=== PATIENT | female | born 1960 | race Caucasian/White ===

== ENCOUNTER 2020-07-18 21:27 | Emergency (ER) | payer OTHER ==
[2020-07-18] MEDS ORDERED: MORPHINE 4 MG/ML SYR ONE (22:50)
--- NOTE | 2020-07-18 23:32 | EDPHYS ---
Physician Documentation [facility] Name: Taylor Siegel Age: 59 yrs Sex: Female : 1960 Arrival Date: 07/18/2020 Time: 21:31 Bed 2 Private MD: ED Physician Zach Hopkins HPI: 07/18 22:36 This 59 yrs old Female presents to ER via Ambulatory with complaints of mh7 Shoulder Pain. 22:36 The patient or guardian complains of an injury, pain, that is acute. right shoulder. mh7 Context: The problem was sustained at home, resulted from lifting or carrying, a heavy object, moving a table, The patient experiences decreased range of motion, when rotates arm, The patient reports no obvious deformity. Onset: The symptoms/episode began/occurred yesterday. Modifying factors: the symptoms are alleviated by nothing. The symptoms are aggravated by lifting weight, movement, rotation of arm. Associated signs and symptoms: Pertinent negatives: abdominal pain, chest pain, diaphoresis, dyspnea, neck pain, shortness of breath, tingling. Severity of symptoms: At their worst the symptoms were moderate, last night, in the emergency department the symptoms are unchanged. Treatment prior to arrival includes: no previous treatment. Historical: - Allergies: 21:43 Sulfa (Sulfonamide Antibiotics); lp1 - PMHx: 21:43 Hypertension; Hyperlipidemia; lp1 - PSHx: 21:43 Hysterectomy; lp1 - Immunization history:: Adult Immunizations up to date. - Social history:: Smoking status: Patient denies any tobacco usage or history of. ROS: 22:36 Constitutional: Negative for fever, chills, and weight loss, Eyes: Negative for injury, mh7 pain, redness, and discharge, ENT: Negative for injury, pain, and discharge, Neck: Negative for injury, pain, and swelling, Cardiovascular: Negative for chest pain, palpitations, and edema, Respiratory: Negative for shortness of breath, cough, wheezing, and pleuritic chest pain, Abdomen/GI: Negative for abdominal pain, nausea, vomiting, diarrhea, and constipation, Back: Negative for injury and pain, : Negative for injury, bleeding, discharge, and swelling, Skin: Negative for injury, rash, and discoloration, Neuro: Negative for headache, weakness, numbness, tingling, and seizure, Psych: Negative for depression, anxiety, suicide ideation, homicidal ideation, and hallucinations, Allergy/Immunology: Negative for hives, rash, and allergies, Endocrine: Negative for neck swelling, polydipsia, polyuria, polyphagia, and marked weight changes, Hematologic/Lymphatic: Negative for swollen nodes, abnormal bleeding, and unusual bruising. Exam: 22:36 Constitutional: This is a well developed, well nourished patient who is awake, alert, mh7 and in no acute distress. Head/Face: Normocephalic, atraumatic. Eyes: Pupils equal round and reactive to light, extra-ocular motions intact. Lids and lashes normal. Conjunctiva and sclera are non-icteric and not injected. Cornea within normal limits. Periorbital areas with no swelling, redness, or edema. Neck: Trachea midline, no thyromegaly or masses palpated, and no cervical lymphadenopathy. Supple, full range of motion without nuchal rigidity, or vertebral point tenderness. No Meningismus. Chest/axilla: Normal chest wall appearance and motion. Nontender with no deformity. No lesions are appreciated. Cardiovascular: Regular rate and rhythm with a normal S1 and S2. No gallops, murmurs, or rubs. Normal PMI, no JVD. No pulse deficits. Respiratory: Lungs have equal breath sounds bilaterally, clear to auscultation and percussion. No rales, rhonchi or wheezes noted. No increased work of breathing, no retractions or nasal flaring. Abdomen/GI: Soft, non-tender, with normal bowel sounds. No distension or tympany. No guarding or rebound. No evidence of tenderness throughout. Back: No spinal tenderness. No costovertebral tenderness. Full range of motion. Skin: Warm, dry with normal turgor. Normal color with no rashes, no lesions, and no evidence of cellulitis. 22:36 Neuro: Awake and alert, GCS 15, oriented to person, place, time, and situation. Cranial nerves II-XII grossly intact. Motor strength 5/5 in all extremities. Sensory grossly intact. Cerebellar exam normal. Normal gait. Psych: Awake, alert, with orientation to person, place and time. Behavior, mood, and affect are within normal limits. 22:36 Musculoskeletal/extremity: Extremities: noted in the right shoulder: decreased ROM, pain, tenderness, ROM: limited active range of motion, in the right shoulder, limited passive range of motion, in the right shoulder, limited active range of motion due to pain, in the right shoulder, limited passive range of motion due to pain, in the right shoulder, Circulation is intact in all extremities. Pulses: are normal with no appreciated deficits, Perfusion: the patient is normally perfused throughout, Perfusion: the extremity is normally perfused throughout, Calf tenderness, is absent, Edema, is not appreciated, Sensation intact. Compartment Syndrome exam of affected extremity: is normal. no numbness, no tingling, no sensation deficit, no palor, no weak pulses, Joints: the right shoulder displays limited range of motion, painful range of motion, tenderness, Weight bearing: able to fully bear weight, without difficulty, Tendon exam: specific tendon testing normal through active and passive range of motion DVT Exam: no swelling, negative Homans' sign noted on exam, no appreciated bluish discoloration, no erythema, no increased warmth, Calves: are non-tender, have equal circumference. Vital Signs: 21:43 BP 111 / 62; Pulse 82; Resp 18; Temp 98.8(TE); Pulse Ox 100% on R/A; Weight 79.38 kg lp1 (R); Height 5 ft. 0 in. (152.40 cm); Pain 8/10; 21:43 Body Mass Index 34.18 (79.38 kg, 152.40 cm) lp1 MDM: 23:24 Differential diagnosis: Anterior dislocation without fracture, Posterior dislocation mh7 without fracture, DJD, tendonitis. Data reviewed: vital signs, nurses notes, radiologic studies, plain films. Data interpreted: Pulse oximetry: on room air is 100 %. Interpretation: normal. Counseling: I had a detailed discussion with the patient and/or guardian regarding: the historical points, exam findings, and any diagnostic results supporting the discharge/admit diagnosis, radiology results, the need for outpatient follow up, a orthopedic surgeon, to return to the emergency department if symptoms worsen or persist or if there are any questions or concerns that arise at home. Response to treatment: the patient's symptoms have markedly improved after treatment. 23:31 Patient medically screened. [facility] 07/18 22:37 Order name: Shoulder Right 2 View [facility] 07/18 23:24 Order name: Sling; Complete Time: 00:07 [facility] Administered Medications: 22:34 Drug: morphine 4 mg Route: IM; Site: left deltoid; iw 23:45 Follow up: Response: Pain is unchanged, physician notified lp1 23:50 Drug: Ondansetron 4 mg Route: PO; lp1 07/19 00:06 Follow up: Response: Medication administered at discharge. 1 07/18 23:50 Drug: TORadol (ketorolac) 60 mg Route: IM; Site: left gluteus; lp1 07/19 00:06 Follow up: Response: Medication administered at discharge. 1 Disposition: 07/18/20 23:31 Discharged to Home. Impression: Unspecified sprain of right shoulder joint. - Condition is Stable. - Discharge Instructions: Shoulder Sprain. - Prescriptions for Ibuprofen 800 mg Oral Tablet - take 1 tablet by ORAL route every 8 hours As needed take with food; 15 tablet. Tramadol 50 mg Oral Tablet - take 1 tablet by ORAL route every 8 hours as needed; 12 tablet. - Medication Reconciliation Form, Thank You Letter, Antibiotic Education, Prescription Opioid Use form. - Follow up: Private Physician; When: 1 - 2 days; Reason: Worsening of condition, Recheck today's complaints, Continuance of care, Re-evaluation by your physician. Follow up: Fabrizio Moreau MD; When: 1 - 2 days; Reason: Worsening of condition, Recheck today's complaints. - Problem is new. - Symptoms have improved. Signatures: Dispatcher [employer] EDMS Alis Sun RN RN Karina Trejo RN RN 1 Zach Hopkins MD MD [facility] Corrections: (The following items were deleted from the chart) 07/18 23:05 22:45 Shoulder Right 2 View+RAD.RAD.BRZ ordered. [facility] EDNM 23:33 23:31 07/18/2020 23:31 Discharged to Home. Impression: Shoulder Strain, Right. [facility] Condition is Stable. Forms are Medication Reconciliation Form, Thank You Letter, Antibiotic Education, Prescription Opioid Use. Follow up: Private Physician; When: 1 - 2 days; Reason: Worsening of condition, Recheck today's complaints, Continuance of care, Re-evaluation by your physician. Follow up: Fabrizio Moreau; When: 1 - 2 days; Reason: Worsening of condition, Recheck today's complaints. Problem is new. Symptoms have improved. mh7 07/19 00:08 07/18 23:33 07/18/2020 23:31 Discharged to Home. Impression: Unspecified sprain of lp1 right shoulder joint. Condition is Stable. Discharge Instructions: Shoulder Sprain. Prescriptions for Ibuprofen 800 mg Oral Tablet - take 1 tablet by ORAL route every 8 hours As needed take with food; 15 tablet. and Forms are Medication Reconciliation Form, Thank You Letter, Antibiotic Education, Prescription Opioid Use. Follow up: Private Physician; When: 1 - 2 days; Reason: Worsening of condition, Recheck today's complaints, Continuance of care, Re-evaluation by your physician. Follow up: Fabrizio Moreau; When: 1 - 2 days; Reason: Worsening of condition, Recheck today's complaints. Problem is new. Symptoms have improved. mh7
--- NOTE | 2020-07-18 23:32 | ER ---
Nurse's Notes [facility] Name: Taylor Siegel Age: 59 yrs Sex: Female : 1960 Arrival Date: 07/18/2020 Time: 21:31 Bed 2 Private MD: Diagnosis: Unspecified sprain of right shoulder joint Presentation: 07/18 21:40 Chief complaint: Patient states: Reports moving a table yesterday without any injury; lp1 reports worsening right shoulder pain, unable to lift arm due to pain on ROM; Denies any injury to site. Coronavirus screen: Client denies travel out of the [place] in the last 14 days. At this time, the client does not indicate any symptoms associated with coronavirus-19. Ebola Screen: No symptoms or risks identified at this time. Risk Assessment: Do you want to hurt yourself or someone else? Patient reports no desire to harm self or others. Onset of symptoms was July 18, 2020. 21:40 Method Of Arrival: Ambulatory lp1 21:40 Acuity: MARY 3 lp1 21:43 Initial Sepsis Screen: Does the patient meet any 2 criteria? No. Patient's initial lp1 sepsis screen is negative. Does the patient have a suspected source of infection? No. Patient's initial sepsis screen is negative. Historical: - Allergies: 21:43 Sulfa (Sulfonamide Antibiotics); lp1 - PMHx: 21:43 Hypertension; Hyperlipidemia; lp1 - PSHx: 21:43 Hysterectomy; lp1 - Immunization history:: Adult Immunizations up to date. - Social history:: Smoking status: Patient denies any tobacco usage or history of. Screenin:40 Abuse screen: Denies threats or abuse. Denies injuries from another. Nutritional iw screening: No deficits noted. Tuberculosis screening: No symptoms or risk factors identified. Fall Risk None identified. Assessment: 22:39 General: Appears in no apparent distress. Behavior is calm, cooperative. Pain: iw Complains of pain in right shoulder. Neuro: Level of Consciousness is awake, alert, obeys commands, Oriented to person, place, time, situation, Moves all extremities. Full function. Cardiovascular: Patient's skin is warm and dry. Respiratory: Respiratory effort is even, unlabored, Respiratory pattern is regular. Derm: Skin is intact, is healthy with good turgor. Musculoskeletal: Range of motion: limited in right shoulder. 23:45 Reassessment: Patient reports nausea and continued pain to right shoulder; Provider lp1 notified, verbal order for Zofran ODT 4mg PO, Toradol 60mg IM now. Vital Signs: 21:43 BP 111 / 62; Pulse 82; Resp 18; Temp 98.8(TE); Pulse Ox 100% on R/A; Weight 79.38 kg lp1 (R); Height 5 ft. 0 in. (152.40 cm); Pain 8/10; 21:43 Body Mass Index 34.18 (79.38 kg, 152.40 cm) lp1 ED Course: 21:31 Patient arrived in ED. bp1 21:42 Triage completed. lp1 21:43 Arm band placed on left wrist. lp1 22:01 Zach Hopkins MD is Attending Physician. [facility] 23:05 Shoulder Right 2 View In Process Unspecified. EDMS 23:30 Fabrizio Moreau MD is Referral Physician. [facility] 23:33 No provider procedures requiring assistance completed. Patient did not have IV access ea during this emergency room visit. 23:45 Patient has correct armband on for positive identification. lp1 07/19 00:00 Sling applied to right arm. lp1 00:05 Karina Trejo, RN is Primary Nurse. lp1 Administered Medications: 07/18 22:34 Drug: morphine 4 mg Route: IM; Site: left deltoid; iw 23:45 Follow up: Response: Pain is unchanged, physician notified lp1 23:50 Drug: Ondansetron 4 mg Route: PO; lp1 07/19 00:06 Follow up: Response: Medication administered at discharge. lp1 07/18 23:50 Drug: TORadol (ketorolac) 60 mg Route: IM; Site: left gluteus; lp1 07/19 00:06 Follow up: Response: Medication administered at discharge. 1 Outcome: 07/18 23:31 Discharge ordered by . [facility] 07/19 00:07 Discharged to home ambulatory, with significant other. lp1 Condition: good Discharge instructions given to patient, Instructed on discharge instructions, follow up and referral plans. medication usage, Demonstrated understanding of instructions, follow-up care, medications, Prescriptions given X 2. 00:08 Patient left the ED. lp1 Signatures: Dispatcher [employer] Alis Celis RN RN iw Pena, Laura, RN RN lp1 Laura Pereira, Iris Andersen RN, ea, Maurice, MD MD mh7 Corrections: (The following items were deleted from the chart) 07/18 21:45 21:43 Pulse 82bpm; Resp 18bpm; Pulse Ox 100% RA; Temp 98.8F Temporal; 79.38 kg lp1 Reported; Height 5 ft. 0 in.; BMI: 34.1; Pain 8/10; lp1
[2020-07-19] MEDS ORDERED: ONDANSETRON 4 MG (ODT) TAB ONE (00:09)
[2020-07-19] MEDS ORDERED: KETOROLAC 30 MG/ML INJ ONE (00:09)
[2020-07-19 00:23] VITALS: BP 111/62; TEMP 98.8; O2SAT 100
--- NOTE | 2020-07-19 13:09 | RAD REPORT ---
EXAM DESCRIPTION: RAD - Shoulder Right 2 View - 07/18/2020 11:06 pm CLINICAL HISTORY: pain COMPARISON: No comparisons FINDINGS: Calcification in the region of the supraspinatus tendon is present compatible with calcifi c tendinitis. No acute fracture evident.
== END 2020-07-19 00:08 | disposition home or self-care (01) ==
LOC: ER 21:27
DX: S43.401A Unspecified sprain of right shoulder joint, initial encounter (principal); I10 Essential (primary) hypertension; E78.5 Hyperlipidemia, unspecified; X50.0XXA Overexertion from strenuous movement or load, initial encounter; Y92.009 Unspecified place in unspecified non-institutional (private) residence as the place of occurrence of the external cause
CPT/HCPCS: 96372; 99284

== ENCOUNTER 2024-06-24 08:48 | Emergency (ER) | payer OTHER ==
[2024-06-24 09:59] LABS: Absolute Eosinophils 0.2 K/uL (0-0.5); Absolute Lymphocytes (CBC) 1.7 K/uL (0.7-4.9); Absolute Monocytes 0.4 K/uL (0.1-1.3); Absolute Neutrophil 2.4 K/uL (1.8-8.0); Eosinophils % 3.7 % (0-4.4); Hematocrit 39.1 % (36.0-45.0); Hemoglobin 13.7 g/dL (12.0-15.0); Lymphocytes % 36.7 % (15.3-44.8); MCH 31.3 pg (27.0-35.0); MCV 89.4 fL (80-100); Monocytes % 8.1 % (3.3-12.3); Neutrophils % 50.5 % (41.7-73.7); Nucleated Red Blood Cells % 0.1 % (0-0); Platelets 223 thou/uL (152-406); RBC Red Blood Cell Count 4.38 M/uL (3.86-4.86); Red Cell Distribution Width 14.3 % (12.1-15.2)
[2024-06-24 10:04] LABS: PT Prothrombin Time 11.9 SECONDS (10-13.0); Protime INR 1.05
[2024-06-24 10:18] LABS: Albumin 4.1 g/dL (3.4-5.0); Albumin/Globulin Ratio 1.1 (1.1-1.8); Anion Gap 8.2 mEq/L (5.0-15.0); Bilirubin Direct 0.3 mg/dL (0-0.2); Bilirubin Total 1.3 mg/dL (0.2-1.0); Globulin 3.6 g/dL (2.3-3.5); Magnesium 2.3 mg/dL (1.6-2.4); Potassium 4.2 mEq/L (3.5-5.1); Protein, Total 7.7 g/dL (6.4-8.2); Troponin High Sensitivity 3.8 pg/mL (<58.9)
--- NOTE | 2024-06-24 10:22 | EDPHYS ---
Physician Documentation [facility] Name: Taylor Siegel Age: 63 yrs Sex: Female : 1960 Arrival Date: 06/24/2024 Time: 08:48 Bed 16 Private MD: ED Physician Jatinder Riley HPI: 06/24 09:39 This 63 yrs old Female presents to ER via Ambulatory with complaints of High Blood sp3 Pressure. 09:39 63-year-old female with history of hypertension and hyperlipidemia who sees Dr. Hunt sp3 presents to the ED with chief complaint asymptomatic hypertension with maximum systolic 190 at home. She states that Dr. Hunt had been tweaking her medications due to some side effects. She denies any headache, neck pain, chest pain, shortness of breath, abdominal pain, syncope, near syncope, vomiting, rash, bleeding, or any other signs or symptoms on ROS at this time.. Historical: - Allergies: 09:06 Sulfa (Sulfonamide Antibiotics); ss - PMHx: 09:06 Hypertension; Hyperlipidemia; ss - PSHx: 09:06 Hysterectomy (Hyperlipidemia); Breast Augmentation (Hyperlipidemia); Foot sx ss (Hyperlipidemia); Trigger finger repair (Hyperlipidemia); - Immunization history:: Adult Immunizations up to date. - Infectious Disease History:: Denies. - Social history:: Smoking status: Patient denies any tobacco usage or history of. ROS: 09:42 Constitutional: Negative for fever, chills, and weight loss, Eyes: Negative for injury, sp3 pain, redness, and discharge, ENT: Negative for injury, pain, and discharge, Neck: Negative for injury, pain, and swelling, Respiratory: Negative for shortness of breath, cough, wheezing, and pleuritic chest pain, Abdomen/GI: Negative for abdominal pain, nausea, vomiting, diarrhea, and constipation, Back: Negative for injury and pain, MS/Extremity: Negative for injury and deformity, Skin: Negative for injury, rash, and discoloration, Neuro: Negative for headache, weakness, numbness, tingling, and seizure, Psych: Negative for depression, anxiety, suicide ideation, homicidal ideation, and hallucinations, Allergy/Immunology: Negative for hives, rash, and allergies, Endocrine: Negative for neck swelling, polydipsia, polyuria, polyphagia, and marked weight changes, Hematologic/Lymphatic: Negative for swollen nodes, abnormal bleeding, and unusual bruising, 09:42 All other systems are negative, Exam: 09:42 Constitutional: This is a well developed, well nourished patient who is awake, alert, sp3 and in no acute distress. Head/Face: Normocephalic, atraumatic. Eyes: Pupils equal round and reactive to light, extra-ocular motions intact. Lids and lashes normal. Conjunctiva and sclera are non-icteric and not injected. Cornea within normal limits. Periorbital areas with no swelling, redness, or edema. ENT: Nares patent. No nasal discharge, no septal abnormalities noted. External auditory canals are clear. Oropharynx with no redness, swelling, or masses, exudates, or evidence of obstruction, uvula midline. Mucous membranes moist. Neck: Trachea midline, no thyromegaly or masses palpated, and no cervical lymphadenopathy. Supple, full range of motion without nuchal rigidity, or vertebral point tenderness. No Meningismus. Chest/axilla: Normal chest wall appearance and motion. Nontender with no deformity. No lesions are appreciated. Cardiovascular: Regular rate and rhythm with a normal S1 and S2. No gallops, murmurs, or rubs. Normal PMI, no JVD. No pulse deficits. Respiratory: Lungs have equal breath sounds bilaterally, clear to auscultation and percussion. No rales, rhonchi or wheezes noted. No increased work of breathing, no retractions or nasal flaring. Abdomen/GI: Soft, non-tender, with normal bowel sounds. No distension or tympany. No guarding or rebound. No evidence of tenderness throughout. Back: No spinal tenderness. No costovertebral tenderness. Full range of motion. Skin: Warm, dry with normal turgor. Normal color with no rashes, no lesions, and no evidence of cellulitis. MS/ Extremity: Pulses equal, no cyanosis. Neurovascular intact. Full, normal range of motion. Neuro: Awake and alert, GCS 15, oriented to person, place, time, and situation. Cranial nerves II-XII grossly intact. Motor strength 5/5 in all extremities. Sensory grossly intact. Cerebellar exam normal. Normal gait. Psych: Awake, alert, with orientation to person, place and time. Behavior, mood, and affect are within normal limits. 09:42 ECG was reviewed by the Attending Physician. EKG demonstrates sinus bradycardia 54 bpm with normal intervals, normal QRS, normal axis, normal ST/T-segment's without evidence of acute ischemia. Vital Signs: 09:04 BP 193 / 103; Pulse 71; Resp 17; Pulse Ox 100% on R/A; ss 09:08 Temp 98.9(O); Weight 77.11 kg; Height 5 ft. 0 in. ; ss 10:13 BP 153 / 86; Pulse 55; Resp 18; Pulse Ox 97% on R/A; ld1 09:08 Body Mass Index 33.20 (77.11 kg, 152.4 cm) ss MDM: 09:10 Medical Screening Exam initiated sp3 09:45 Data reviewed: vital signs, nurses notes, old medical records, lab test result(s), EKG. sp3 ED course: 63-year-old female with high blood pressure. No evidence of endorgan damage clinically and we will obtain troponin and creatinine levels. EKG is normal. I would not intervene with any blood pressure medication adjustments and patient's blood pressure is not currently critically high where intervention is indicated. I advised her if her blood work is normal that she should contact her PCP for any needed adjustments.. 10:20 ED course: Full workup negative. Will safely discharge patient home at this time. sp3 Discharge blood pressure 153/86.. 06/24 09:12 Order name: Basic Metabolic Panel; Complete Time: 10:20 3 06/24 09:12 Order name: CBC with Diff; Complete Time: 10:20 3 06/24 09:12 Order name: LFT's; Complete Time: 10:20 3 06/24 09:12 Order name: Magnesium; Complete Time: 10:20 sp3 06/24 09:12 Order name: NT PRO-BNP; Complete Time: 10:20 3 06/24 09:12 Order name: PT-INR; Complete Time: 10:20 3 06/24 09:12 Order name: Troponin HS; Complete Time: 10:20 sp3 06/24 09:12 Order name: Cardiac monitoring; Complete Time: 09:19 sp3 06/24 09:12 Order name: EKG - Nurse/Tech; Complete Time: 09:30 3 06/24 09:12 Order name: IV Saline Lock; Complete Time: 09:51 sp3 06/24 09:12 Order name: Labs collected and sent; Complete Time: 09:51 sp3 06/24 09:12 Order name: O2 Per Protocol; Complete Time: 09:19 sp3 06/24 09:12 Order name: O2 Sat Monitoring; Complete Time: 09:19 sp3 Administered Medications: No medications were administered Disposition Summary: 06/24/24 10:21 Discharge Ordered Notes: Location: Home sp3 Condition: Stable sp3 Diagnosis - Hypertension sp3 Followup: sp3 - With: Private Physician - When: Upon discharge from the Emergency Department - Reason: Continuance of care Discharge Instructions: - Discharge Summary Sheet sp3 - Hypertension, Adult sp3 Forms: - Medication Reconciliation Form sp3 - Antibiotic Education sp3 - Prescription Opioid Use sp3 - Patient Portal Instructions sp3 - Leadership Thank You Letter sp3 Signatures: Dispatcher [employer] EDLaurie Fang RN RN ss Seema Rodriguez RN RN ld1 Jatinder Riley MD MD sp3 Corrections: (The following items were deleted from the chart) 09:12 09:12 BASIC METABOLIC PANEL+C.LAB.BRZ ordered. EDMS EDMS 09:12 09:12 CBC+H.LAB.BRZ ordered. EDMS EDMS 09:12 09:12 HEPATIC FUNCTION+C.LAB.BRZ ordered. EDMS EDMS 09:12 09:12 MAGNESIUM+C.LAB.BRZ ordered. EDMS EDMS 09:12 09:12 PROBNP+C.LAB.BRZ ordered. EDMS EDMS 09:12 09:12 PROTIME (+INR)+COAG.LAB.BRZ ordered. EDMS EDMS 09:12 09:12 Troponin High Sensitivity+C.LAB.BRZ ordered. EDMS EDMS
--- NOTE | 2024-06-24 10:22 | ER ---
Nurse's Notes [facility] Name: Taylor Siegel Age: 63 yrs Sex: Female : 1960 Arrival Date: 06/24/2024 Time: 08:48 Bed 16 Private MD: Diagnosis: Hypertension Presentation: 06/24 09:04 Chief complaint: Patient states: "I switched my blood pressure medication last ss Monday." Pt reports she switched from Lisinopril 30 mg DAILY to Spironolactone 50 mg and blood pressures have been reading high at home. Pt has no complaints other than anxiety at this time. Coronavirus screen: Client denies travel out of the [place] in the last 14 days. Ebola Screen: Patient denies exposure to infectious person. Patient denies travel to an Ebola-affected area in the 21 days before illness onset. Initial Sepsis Screen: Does the patient meet any 2 criteria? No. Patient's initial sepsis screen is negative. Does the patient have a suspected source of infection? No. Patient's initial sepsis screen is negative. Risk Assessment: Do you want to hurt yourself or someone else? Patient reports no desire to harm self or others. Onset of symptoms is unknown. 09:04 Method Of Arrival: Ambulatory ss 09:04 Acuity: MARY 3 ss Historical: - Allergies: 09:06 Sulfa (Sulfonamide Antibiotics); ss - PMHx: 09:06 Hypertension; Hyperlipidemia; ss - PSHx: 09:06 Hysterectomy (Hyperlipidemia); Breast Augmentation (Hyperlipidemia); Foot sx ss (Hyperlipidemia); Trigger finger repair (Hyperlipidemia); - Immunization history:: Adult Immunizations up to date. - Infectious Disease History:: Denies. - Social history:: Smoking status: Patient denies any tobacco usage or history of. Screenin:27 Abuse screen: Denies threats or abuse. Denies injuries from another. Nutritional ss screening: No deficits noted. Tuberculosis screening: Never had TB. 10:26 [facility] ED Fall Risk Assessment (Adult) History of falling in the last 3 months, ld1 including since admission No falls in past 3 months (0 pts) Confusion or Disorientation No (0 pts) Intoxicated or Sedated No (0 pts) Impaired Gait No (0 pts) Mobility Assist Device Used No (0 pt) Altered Elimination Score/Fall Risk Level 0 - 2 = Low Risk Oriented to surroundings, Hourly rounding (assess needs \\T\\ fall precautionary measures) done. Assessment: 09:27 General: Appears in no apparent distress. Behavior is cooperative, anxious, Denies ss fever, feeling ill, fatigue, chills. Pain: Denies pain. Neuro: Level of Consciousness is awake, alert, obeys commands, Oriented to person, place, time, situation. Neuro: Denies headache. Respiratory: Airway is patent Respiratory effort is even, unlabored, Respiratory pattern is regular, symmetrical. GI: Patient currently denies nausea, vomiting. EENT: Oral mucosa is moist. Derm: Skin is intact, is healthy with good turgor, Skin is pink, warm \\T\\ dry. normal. Vital Signs: 09:04 BP 193 / 103; Pulse 71; Resp 17; Pulse Ox 100% on R/A; ss 09:08 Temp 98.9(O); Weight 77.11 kg; Height 5 ft. 0 in. ; ss 10:13 BP 153 / 86; Pulse 55; Resp 18; Pulse Ox 97% on R/A; ld1 09:08 Body Mass Index 33.20 (77.11 kg, 152.4 cm) ED Course: 08:54 Patient arrived in ED. cj3 09:06 Triage completed. ss 09:06 Arm band placed on right wrist. ss 09:09 Jatinder Riley MD is Attending Physician. sp3 09:14 Broderick Aparicio, RN is Primary Nurse. bp 09:27 Patient has correct armband on for positive identification. ss 09:51 Basic Metabolic Panel Sent. ty 09:51 CBC with Diff Sent. ty 09:51 LFT's Sent. ty 09:51 Magnesium Sent. ty 09:51 NT PRO-BNP Sent. ty 09:51 PT-INR Sent. ty 09:51 Troponin HS Sent. ty 09:51 Initial lab(s) drawn, by me, sent to lab. Inserted saline lock: 20 gauge in left ty antecubital area, using aseptic technique. Blood collected. Flushed with 10 mL NS. 10:26 No provider procedures requiring assistance completed. IV discontinued, intact, ld1 bleeding controlled, No redness/swelling at site. Administered Medications: No medications were administered Medication: :27 VIS not applicable for this client. ss Outcome: 10:21 Discharge ordered by . sp3 10: Discharged to home ambulatory, ld1 10: Condition: stable 10: Discharge instructions given to patient, Instructed on discharge instructions, follow up and referral plans. Demonstrated understanding of instructions, follow-up care, 10: Patient left the ED. ld1 Signatures: Laurie Dalton RN RN ss Broderick Aparicio RN RN bp Sims, Lauren, RN RN ld1 Jatinder Riley MD MD sp3 Joe Gamino Celeste 3
[2024-06-24 10:42] VITALS: TEMP 98.9
[2024-06-24 10:48] VITALS: BP 153/86; O2SAT 97
--- NOTE | 2024-06-24 11:29 | EKG ---
Test Date: 2024-06-24 Test Time: 09:26:46 [employer]: VELMA MEASUREMENT RESULTS: Intervals: Rate: 54 ND: 156 QRSD: 72 QT: 422 QTc: 400 [place]: P: 64 ND: 156 QRS: 36 T: 28 INTERPRETIVE STATEMENTS: Sinus bradycardia Otherwise normal ECG No previous ECG available for comparison Electronically Signed On 06-24-24 11:28:06 CDT by Kolton Rankin
== END 2024-06-24 10:27 | disposition home or self-care (01) ==
LOC: ER 08:48
DX: I10 Essential (primary) hypertension (principal); Z98.82 Breast implant status
CPT/HCPCS: 36415; 80048; 80076; 83735; 83880; 84484; 85025; 85610; 93005; 99283